=== PATIENT | female | born 1975 | race Caucasian/White ===

== ENCOUNTER 2017-10-24 11:48 | Observation (INO) ==
--- NOTE | 2017-10-24 12:08 | Emergency Department Note ---
Disposition Clinical Impression: Dizziness Chest pain Qualifiers: Chest pain type: precordial pain Qualified Code(s): R07.2 - Precordial pain Disposition: Admitted As Inpatient Condition: Fair Time of Disposition: 13:05 Dizziness HPI - General Chief Complaint: ED Dizziness Stated Complaint: Dizziness and nausea Time Seen by Provider: 10/24/17 12:01 Source: patient Mode of arrival: private vehicle Limitations: no limitations Nursing Notes Reviewed: Yes Vital Signs Reviewed: Yes - History of Present Illness HPI Narrative: Patient reports she initially has just been feeling dizzy for 2-3 days. She states the symptoms have "come and gone". She has had associated nausea without vomiting. She states it is worse when she is up and moving it is better she shuts her eyes are sit still. He describes a feeling of blurring of vision with some motion in a dark sensation. She states she has had something similar in the past but has not had it evaluated. She reports is a little bit of a headache which is frontal and throbbing. This was not explosive or severe. She denies any other visual changes. She does report today since 9 AM anterior chest pain which is described as it is "slightly heavy". She states this is a 7 on a scale of 1-10. She denies palpitations but has had mild shortness of breath and also some sweating spells. She denies anything that has been making the chest pain better or worse. She has had pain in the left axillary region since 9 AM and she relates it will shoot down the medial side of her left arm. She denies anything makes this better or worse and she describes it as a tingling and numbness. She denies any type of fall or head injury. She denies recent change of medicines. Denies history of any previous cardiac evaluation other than an EKG and blood tests 2-3 years ago. She does report a history of smoking and a family history of a father who had heart attacks since age 25 and she has obesity with BMI of 33. She denies hypertension, diabetes, elevated cholesterol, known heart disease nor any history of DVT or PE. Pt Subjective Complaint: dizziness, other (Anterior chest pain) Onset (ago): day(s) Timing: gradual onset, waxing/waning Description: "room spinning", lightheadedness, off-balance, difficulty walking History of similar episodes: Yes History of trauma: No Severity: mild, moderate Improves with: remaining still Worsens with: movement, position Associated symptoms: Reports: chest pain, diaphoresis, shortness of breath, weakness, nausea. Denies: ataxia, confusion, fever, chills, malaise, rash, syncope, vision changes, vomiting, palpitations - Related Data Home Medications Medication Instructions Recorded Confirmed No Known Home Drugs 10/24/17 10/24/17 Allergies Allergy/AdvReac Type Severity Reaction Status Date / Time Penicillins [PCN] Allergy See Verified 10/24/17 11:49 Comments Sulfa (Sulfonamide Allergy Itching,SHORTNESS Verified 10/24/17 11:49 Antibiotics) OF BREATH acetaminophen [From Vicodin] AdvReac Vomiting Verified 10/24/17 11:49 hydrocodone [From Vicodin] AdvReac Vomiting Verified 10/24/17 11:49 All systems ED: reviewed and negative except as stated. Past Medical History - Past Medical History Attestation: Yes The following information was validated with the patient. 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 Denies: coronary artery disease, DVT, diabetes, hyperlipidemia, hypertension, myocardial infarction, pulmonary embolus, renal disease Surgical history: Reports: cholecystectomy, hysterectomy, other (Uterine ablation, bladder surgery) Psychiatric history: Reports: anxiety, depression [employer] history: Reports: uterine fibroids, bilateral tubal ligation, other - Social History Smoking Status: Current every day smoker Smokeless Tobacco Status: No Alcohol use: Reports: none Drug use: Reports: none Physical Exam - General Limitations: no limitations General appearance: alert, in no apparent distress - Head Head exam: atraumatic, normocephalic, normal inspection - Eye Eye exam: Present: normal appearance, PERRL, EOMI. Absent: scleral icterus, conjunctival injection, nystagmus, miosis, mydriasis - ENT ENT exam: normal exam, normal oropharynx, mucous membranes moist - Neck Neck exam: Present: normal inspection, full ROM, trachea midline. Absent: tenderness, lymphadenopathy - Chest Chest inspection: Present: normal inspection, symmetric chest wall rise. Absent : tenderness - Respiratory Respiratory exam: Present: normal lung sounds bilaterally. Absent: respiratory distress, wheezes, prolonged expiratory phase - Cardiovascular Cardiovascular exam: Present: regular rate, normal rhythm, tachycardia, normal heart sounds - Abdominal Exam Abdominal exam: Present: soft, Non-Tender, normal bowel sounds. Absent: tenderness, distention, guarding, rebound, rigidity - Extremities Exam Extremities exam: Present: normal inspection, full ROM, normal capillary refill. Absent: tenderness, pedal edema, calf tenderness - Expanded Lower Extremity Exam Neurovascular/Tendon exam: Present: normal capillary refill. Absent: motor deficit, sensory deficit, tendon deficit Gait: not tested/not observed - Back Exam Back exam: Present: normal inspection, full ROM. Absent: tenderness, CVA tenderness (R), CVA tenderness (L) - Neurological Exam Neurological exam: Present: alert, oriented X3, CN II-XII intact, normal gait, reflexes normal, other (With checking extraocular motions the patient does have increased dizziness.). Absent: motor sensory deficit - Psychiatric Psychiatric exam: Present: normal affect, normal mood - Skin Skin exam: Present: warm, dry, intact, normal color. Absent: rash, diaphoresis , pallor Course Course Narrative: 1350: With return of all testing, care has been discussed with Dr. Macdonald. Her evaluation here is unremarkable but she has responded to nitroglycerin tablet was started on nitroglycerin paste. She also did receive an aspirin and meclizine. Dr. Macdonald is agreeable with her further observation with serial troponins. Verbal orders have been obtained for her observation. Vital Signs Temperature 98.4 F 10/24/17 11:49 Pulse Rate 85 10/24/17 11:49 Respiratory Rate 18 10/24/17 11:49 Blood Pressure 169/95 10/24/17 11:49 O2 Sat by Pulse Oximetry 96 10/24/17 11:49 Temperature 98.4 F 10/24/17 11:49 Pulse Rate 67 10/24/17 14:06 Respiratory Rate 18 10/24/17 14:23 Blood Pressure 132/73 10/24/17 14:23 O2 Sat by Pulse Oximetry 96 10/24/17 14:06 Oxygen Delivery Oxygen Delivery Room Air Dizziness - Lab Data Lab results reviewed: Yes I reviewed the patient's lab results. Result diagrams: 10/24/17 12:44 10/24/17 12:44 Lab Results 10/24/17 10/24/17 10/24/17 Range/Units 12:44 12:44 12:44 WBC 11.2 H (4.3-11.1) K/mcL RBC 5.06 H (3.82-4.97) M/mcL Hgb 14.0 (11.5-15.4) g/dL Hct 41.9 (35.3-44.9) % MCV 82.8 L (83.0-100.0) fL MCH 27.7 L (28.0-33.3) pg MCHC 33.4 (31.6-35.5) g/dL RDW 13.7 (11.5-14.5) % Plt Count 289 (140-400) K/mcL MPV 10.1 (9.4-12.4) fL Immature Gran % 0.3 (0-4) % Seg Neutrophils % 64.2 % Lymphocytes % 29.1 % Monocytes % 4.9 % Eosinophils % 0.8 % Basophils % 0.7 % Neutrophils # 7.2 (1.6-8.9) K/mcL Lymphocytes # 3.3 (0.6-4.6) K/mcL Monocytes # 0.6 (0.0-1.3) K/mcL Eosinophils # 0.1 (0.0-0.6) K/mcL Basophils # 0.1 (0.0-0.2) K/mcL PT 12.1 (9.4-12.1) Seconds INR 1.1 APTT 31.6 (26.0-36.0) Seconds Sodium 136 (136-145) mEq/L Potassium 4.1 (3.5-5.1) mEq/L Chloride 104 (98-107) mEq/L Carbon Dioxide 26 (23-29) mEq/L BUN 8 (6-20) mg/dL Creatinine 0.55 L (0.60-1.20) mg/dL Est GFR ( Amer) > 60 (> 60) Est GFR (Non-Af Amer) > 60 (> 60) BUN/Creatinine Ratio 15 (6-26) Glucose 94 (70-105) mg/dL Calculated Osmolality 280 (280-300) Calcium 8.9 (8.6-10.3) mg/dL Troponin I < 0.03 (< 0.04) ng/mL - Radiology Data Radiology results reviewed: Yes I reviewed the patient's radiology results. Single view chest x-ray is performed. This does not demonstrate evidence for infiltrate, effusion, pneumothorax, foreign body or heart failure. The cardiac silhouette is normal. I do not see abnormality to the osseous structures of the chest. This is on my interpretation. CT head is performed. This is reviewed on bone and soft tissue windows. There is no evidence for acute intracranial bleed, shift, mass or edema. Mastoids and sinuses appear normal. There is no fracture evident. This is on my interpretation. Impressions Chest X-Ray 10/24/17 12:11 IMPRESSION: No evidence of acute cardiopulmonary disease. D/ / Doni Lua MD / Doni Lua MD Interpreting Provider: Doni Lua MD Head CT 10/24/17 12:11 IMPRESSION: No acute intracranial abnormality. D/ / 10/24/2017 13:05:11 Doni Lua MD / Gabi Castro Interpreting Provider: Doni Lua MD - EKG Data EKG attestation: Yes I reviewed and interpreted this EKG. EKG shows normal: sinus rhythm, axis, intervals, QRS complexes, ST-T waves Rate: normal (79) Interpretation: no acute changes, normal EKG
[2017-10-24] MEDS ORDERED: Ondansetron 4 MG/2 ML VIAL IVP ONE (12:11)
[2017-10-24] MEDS ORDERED: Nitroglycerin 0.4 MG TAB.SUBL SL PRN ×2 (12:14→16:35)
[2017-10-24] MEDS ORDERED: Aspirin 325 MG TABLET PO ONE (12:14)
[2017-10-24] MEDS ORDERED: Nitroglycerin 1 INCH/GM PACKET TP ONE (12:45)
[2017-10-24 12:52] LABS: Basophils # 0.1 K/mcL (0.0-0.2); Basophils % 0.7 %; Eosinophils # 0.1 K/mcL (0.0-0.6); Eosinophils % 0.8 %; Hematocrit 41.9 % (35.3-44.9); Immature Granulocytes % 0.3 % (0-4); Lymphocytes # 3.3 K/mcL (0.6-4.6); Lymphocytes % 29.1 %; Mean Corpuscular HGB Conc 33.4 g/dL (31.6-35.5); Mean Corpuscular Hemoglobin 27.7 pg (28.0-33.3); Mean Corpuscular Volume 82.8 fL (83.0-100.0); Mean Platelet Volume 10.1 fL (9.4-12.4); Monocytes # 0.6 K/mcL (0.0-1.3); Monocytes % 4.9 %; Neutrophils # 7.2 K/mcL (1.6-8.9); Platelet Count 289 K/mcL (140-400); Red Blood Count 5.06 M/mcL (3.82-4.97); Red Cell Distribution Width 13.7 % (11.5-14.5); Segmented Neutrophils % 64.2 %
[2017-10-24 12:58] LABS: INR 1.1; Prothrombin Time 12.1 Seconds (9.4-12.1)
[2017-10-24 13:01] LABS: Activated Partial Thrombo Time 31.6 Seconds (26.0-36.0)
[2017-10-24 13:08] LABS: BUN/Creatinine Ratio 15 (6-26); Blood Urea Nitrogen 8 mg/dL (6-20); Calcium 8.9 mg/dL (8.6-10.3); Carbon Dioxide 26 mEq/L (23-29); Chloride 104 mEq/L (98-107); Glucose 94 mg/dL (70-105); Osmolality,Calculated 280 (280-300); Potassium 4.1 mEq/L (3.5-5.1); Sodium 136 mEq/L (136-145); eGFR For African Americans > 60 (> 60); eGFR For Non-African Americans > 60 (> 60)
[2017-10-24 13:17] LABS: Troponin I < 0.03 ng/mL (< 0.04)
--- NOTE | 2017-10-24 16:33 | Electrocardiograph Report ---
[address] [place], [place] [address] Test Date: 2017-10-24 Pat Name: Bella Duque Department: [id number] Room: [facility] Gender: F [employer]: [id number] : 1975 Requested By: Juve Snider Order Number: [id number] Reading MD: Mariely Zavala Measurements Intervals [place] Rate: 79 P: 43 VT: 148 QRS: 5 QRSD: 84 T: 17 QT: 374 QTc: 409 Interpretive Statements SINUS RHYTHM Electronically Signed On 10-24-2017 16:31:39 EDT by Mariely Zavala
[2017-10-24] MEDS ORDERED: Naloxone 0.4 MG/ML INJ IVP PRN (16:35)
[2017-10-24] MEDS: 0.9 % Sodium Chloride 1,000 ML IVC SCH (17:56)
[2017-10-24] MEDS: Nicotine 21 MG PATCH.TD24 TD SCH (18:41)
[2017-10-24] MEDS: Ibuprofen 800 MG TABLET PO PRN (23:56)
[2017-10-25] MEDS: 0.9 % Sodium Chloride 1,000 ML IVC SCH (02:08)
[2017-10-25] MEDS: Nitroglycerin 1 INCH/GM PACKET TP SCH ×2 (06:45→12:07)
[2017-10-25] MEDS: Nicotine 21 MG PATCH.TD24 TD SCH (08:59)
[2017-10-25] MEDS ORDERED: Aspirin 81 MG TAB.CHEW PO SCH (09:00)
[2017-10-25] MEDS: Ibuprofen 800 MG TABLET PO PRN (13:56)
[2017-10-25 14:12] VITALS: BP 137/82
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
--- NOTE | 2017-10-25 14:27 | Discharge Summary ---
Date of Encounter: 10/25/17 Time of Encounter: 12:25 - Discharge Diagnosis (1) Chest pain Priority: Primary Status: Resolved Qualifiers: Chest pain type: precordial pain Qualified Code(s): R07.2 - Precordial pain (2) Near syncope Priority: Secondary Status: Acute Hospital course: Ms. Duque is a 42 year old female who came to emergency room stating she developed discomfort in her chest described as ache/pressure sensation with radiation to her left upper inner arm area. The episode occurred while she was at leisure. She reports she has had several previous episodes in the past week that were shorter duration and less severe. She did not take medication for relief. She came to emergency room and was evaluated and admitted to [facility] for ongoing care needs. Initial orders were written by the emergency room physician. I saw her on October 25 and performed the history physical and discharge. Repeat cardiac enzymes show no evidence of myocardial damage. The etiology of her chest pain was not determined with certainty. Her telemetry remained stable. She had no further near syncopal episodes during hospitalization. When I saw her on October 25 she felt stable for discharge home. I recommended she follow with a PCP within 1 week. I encouraged her to become a nonsmoker. - Time Spent with Patient Total time spent providing and/or coordinating discharge services: - Discharge Medications Home Medications: Ibuprofen [Motrin] 800 mg PO PRN PRN 10/24/17 [History] Allergies/Adverse Reactions: 3 Allergy/AdvReac Type Severity Reaction Status Date / Time Penicillins [PCN] Allergy See Verified 10/24/17 11:49 Comments Sulfa (Sulfonamide Allergy Itching,SHORTNESS Verified 10/24/17 11:49 Antibiotics) OF BREATH acetaminophen [From Vicodin] AdvReac Vomiting Verified 10/24/17 11:49 hydrocodone [From Vicodin] AdvReac Vomiting Verified 10/24/17 11:49 Date of admission: 10/24/17 14:18 Primary care physician: PCP NONE - Constitutional Vitals: Temp Pulse Resp BP Pulse Ox 98.2 F 74 17 137/82 97 10/25/17 11:36 10/25/17 11:36 10/25/17 11:36 10/25/17 14:09 10/25/17 11:36 - Patient Status Disposition: Home, Self-Care Condition: Fair Overall status at discharge: patient is progressing back to baseline - Discharge Instructions Follow Up With: NONE,PCP [Primary Care Provider] - 1 week - Diet and Activity Activity: resume usual activities as tolerated Diet: advance to your usual diet
== END 2017-10-25 16:00 | disposition home or self-care (01) ==
LOC: INPPIK 11:48 → EMEROOPIK 11:48 → INPPIK 14:31
PROVIDERS: ADMIT Internal Medicine; ATTEND Internal Medicine